=== PATIENT | male | born 1950 | race Caucasian/White ===

== ENCOUNTER 2018-04-02 10:24 | Inpatient (IN) | payer MEDICARE, OTHER ==
[2018-04-02] MEDS ORDERED: guaiFENesin 600 MG Tab.ER PO ONE (10:59)
[2018-04-02] MEDS ORDERED: Albuterol 0.083% 2.5 MG/3 ML Neb Soln NEB ONE ×2 (10:59→13:12)
[2018-04-02] MEDS ORDERED: Sodium Chloride 0.9% 1,000 ML IV SCH ×3 (11:00→12:15)
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
--- NOTE | 2018-04-02 12:05 | CR ---
Chest: Frontal view of the chest was obtained. Comparison: No prior chest x-ray. Thick discoid area of atelectasis is seen within the right base. Lungs otherwise are clear. Heart size and mediastinum are normal. Bony structures are grossly intact. Limited inspiratory study is noted. Impression: 1. Atelectasis within right lung base. Poor inspiratory study. 2. Nothing acute is otherwise seen on frontal chest x-ray. Diagnostic code #2
[2018-04-02] MEDS ORDERED: Sodium Chloride 0.9% 10 ML Syringe FLUSH ONE (12:12)
[2018-04-02] MEDS ORDERED: Iopamidol 755 Mg/ML 100 ML Bottle IVPUSH ONE (12:12)
[2018-04-02] MEDS ORDERED: Sodium Chloride 0.9% 100 ML IV SCH (12:15)
--- NOTE | 2018-04-02 12:54 | CT ---
CT chest Technique: Multiple axial sections through the chest were obtained. Intravenous contrast was utilized. Findings: Pulmonary arteries are not optimally opacified. No filling defects are seen within the main or segmental branches to indicate pulmonary embolism. Smaller subsegmental pulmonary emboli could be missed. Mediastinum and hilar regions show no adenopathy or mass. No pericardial thickening is seen. Small portion of the visualized upper abdominal structure shows no discrete abnormality. Small left sided pleural effusion is noted. Increased density is identified within both lung bases showing air bronchograms. Impression: 1. Less than optimal opacification of the pulmonary arteries. No findings of pulmonary embolism within the main or segmental branches are seen. Smaller subsegmental pulmonary emboli could be missed. 2. Small left-sided pleural effusion. 3. Consolidation within both lung bases with air bronchograms suspicious for bilateral pneumonia. Please correlate that patient has infectious symptoms. Diagnostic code #3
[2018-04-02] MEDS ORDERED: cefTRIAXone 2 GM in Sodium Chloride 0.9% 100 ML IV ONE ×2 (13:01→13:22)
[2018-04-02] MEDS ORDERED: Azithromycin 500 MG in Sodium Chloride 0.9% 250 ML IV ONE (13:01)
[2018-04-02] MEDS ORDERED: Azithromycin 500 MG Vial ONE (13:20)
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
[2018-04-02] MEDS ORDERED: Albuterol 0.083% 2.5 MG/3 ML Neb Soln NEB PRN (17:12)
[2018-04-02] MEDS ORDERED: Acetaminophen 325 MG Tab PO PRN (18:18)
[2018-04-02] MEDS: Enoxaparin 40 MG/0.4 ML Syringe SUBCUT SCH (20:11)
[2018-04-02] MEDS: guaiFENesin/Dextromethorphan 100-10 MG/5 ML Soln 5 ML Cup PO PRN (20:13)
[2018-04-02] MEDS: Sodium Chloride 0.9% 1,000 ML IV SCH (20:32)
[2018-04-02] MEDS: Albuterol/Ipratropium 3.0-0.5 MG/3 ML Neb Soln NEB SCH (20:50)
[2018-04-03] MEDS: Sodium Chloride 0.9% 1,000 ML IV SCH ×3 (03:49→19:41)
[2018-04-03] MEDS: Albuterol/Ipratropium 3.0-0.5 MG/3 ML Neb Soln NEB SCH ×4 (05:25→20:57)
[2018-04-03] MEDS ORDERED: Magnesium Hydroxide 400 MG/5 ML Susp 30 ML Cup PO ONE (06:11)
[2018-04-03] MEDS: guaiFENesin/Dextromethorphan 100-10 MG/5 ML Soln 5 ML Cup PO PRN ×2 (09:40→20:23)
[2018-04-03] MEDS ORDERED: cefTRIAXone 2 GM in Sodium Chloride 0.9% 100 ML IV SCH (13:00)
[2018-04-03] MEDS ORDERED: Azithromycin 500 MG in Sodium Chloride 0.9% 250 ML IV SCH (14:00)
[2018-04-03] MEDS: Enoxaparin 40 MG/0.4 ML Syringe SUBCUT SCH (18:30)
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
[2018-04-03] MEDS: Benzonatate 100 MG Cap PO PRN (20:23)
[2018-04-04] MEDS: Sodium Chloride 0.9% 1,000 ML IV SCH (03:44)
[2018-04-04] MEDS: Albuterol/Ipratropium 3.0-0.5 MG/3 ML Neb Soln NEB SCH ×4 (05:46→20:16)
--- NOTE | 2018-04-04 08:42 | CR ---
Chest: Two views of the chest were obtained. Comparison: Previous chest x-ray of 04/02/[address] of 04/02/18. Mild increased density within both lung bases is noted. Findings are fairly stable from previous exams. Slight blunting of the lateral left costophrenic angle is seen compatible with small pleural effusion. Upper lungs are clear. Heart size and mediastinum are normal. Bony structures appear within normal limits for patient's age. Impression: 1. Continuing increased density within both lung bases as well as small left-sided pleural effusion. 2. No significant change from prior CT study. Diagnostic code #3
[2018-04-04] MEDS: Cephalexin 500 MG Cap PO SCH ×2 (11:13→22:07)
--- NOTE | 2018-04-04 12:53 | PCM.PN ---
- General Info Date of Service: 04/04/18 Admission Dx/Problem (Free Text): Admission Diagnosis/Problem Admission Diagnosis/Problem Pneumonia Subjective Update: Follow Up - Review of Systems General: Denies: Fever, Chills HEENT: Reports: No Symptoms Pulmonary: Reports: Cough, Sputum. Denies: Shortness of Breath Cardiovascular: Denies: Chest Pain Gastrointestinal: Denies: Abdominal Pain, Nausea, Vomiting Genitourinary: Reports: No Symptoms Musculoskeletal: Reports: No Symptoms Skin: Denies: Cyanosis, Pallor, Diaphoresis, Bruising, Rash Neurological: Denies: Confusion, Difficulty Walking, Weakness, Gait Disturbance Psychiatric: Denies: Depression, Anxiety, Agitation, Hallucinations Systems Review Comment:: No overnight or acute issues. He slept well and feels pretty good this AM. He is afebrile w/o leukocytosis. His CRP is down to 10.2. He has been ambulating a lot. - Patient Data Vitals - Most Recent: Last Vital Signs Temp 36.8 C 04/04/18 03:45 Pulse 69 04/04/18 12:21 Resp 20 04/04/18 12:21 BP 107/77 04/04/18 12:21 Pulse Ox 94 L 04/04/18 12:21 Weight - Most Recent: 106.226 kg I&O - Last 24 Hours: Intake & Output 04/03/18 04/04/18 04/04/18 22:59 06:59 14:59 Intake Total 3434 1622 120 Output Total 1000 Balance 2434 1622 120 Lab Results Last 24 Hours: Laboratory Results - last 24 hr 04/02/18 04/04/18 04/04/18 Range/Units 20:19 05:32 05:32 WBC 6.40 (4.23-9.07) K/mm3 RBC 4.00 L (4.63-6.08) M/mm3 Hgb 11.8 L (13.7-17.5) gm/L Hct 35.9 L (40.1-51.0) % MCV 89.8 (79.0-92.2) fl MCH 29.5 (25.7-32.2) pg MCHC 32.9 (32.2-35.5) g/dl RDW Std Deviation 41.9 (35.1-43.9) fL Plt Count 172 (163-337) K/mm3 MPV 9.7 (9.4-12.3) fl Neut % (Auto) 59.6 (34.0-67.9) % Lymph % (Auto) 19.7 L (21.8-53.1) % Charles % (Auto) 15.6 H (5.3-12.2) % Eos % (Auto) 4.4 (0.8-7.0) Baso % (Auto) 0.5 (0.1-1.2) % Neut # (Auto) 3.82 (1.78-5.38) K/mm3 Lymph # (Auto) 1.26 L (1.32-3.57) K/mm3 Charles # (Auto) 1.00 H (0.30-0.82) K/mm3 Eos # (Auto) 0.28 (0.04-0.54) K/mm3 Baso # (Auto) 0.03 (0.01-0.08) K/mm3 Manual Slide Review Normal smear Sodium 141 (136-145) mEq/L Potassium 4.0 (3.5-5.1) mEq/L Chloride 106 (98-107) mEq/L Carbon Dioxide 27 (21-32) mEq/L Anion Gap 12.0 (5-15) BUN 10 (7-18) mg/dL Creatinine 0.9 (0.7-1.3) mg/dL Est Cr Clr Drug Dosing 88.62 mL/min Estimated GFR (MDRD) > 60 (>60) mL/min BUN/Creatinine Ratio 11.1 L (14-18) Glucose 104 (80-115) mg/dL Lactic Acid (0.4-2.0) mmol/L Calcium 8.5 (8.5-10.1) mg/dL Magnesium 1.9 (1.8-2.4) mg/dl C-Reactive Protein 10.2 H* (<1.0) mg/dL Triglycerides (<150) mg/dL Cholesterol (<200) mg/dL LDL Cholesterol Direct (<100) mg/dL HDL Cholesterol (40-59) mg/dL Adenovirus (PCR) Not detected (Not Detected) B. pertussis DNA (PCR) Not detected (Not Detected) B.parapertussis DNA PCR Not detected (Not Detected) C. pneumoniae DNA (PCR) Not detected (Not Detected) Coronavirus (PCR) Not detected (Not Detected) Human Metapneumovir PCR Not detected (Not Detected) Influenza A (RT-PCR) Not detected (Not Detected) Influenza B (RT-PCR) Not detected (Not Detected) M. pneumoniae (PCR) Not detected (Not Detected) Parainfluen 1,2,3,4 PCR Not detected (Not Detected) RSV (PCR) Not detected (Not Detected) Entero/Rhino (PCR) Not detected (Not Detected) 04/04/18 04/04/18 Range/Units 05:32 05:32 WBC (4.23-9.07) K/mm3 RBC (4.63-6.08) M/mm3 Hgb (13.7-17.5) gm/L Hct (40.1-51.0) % MCV (79.0-92.2) fl MCH (25.7-32.2) pg MCHC (32.2-35.5) g/dl RDW Std Deviation (35.1-43.9) fL Plt Count (163-337) K/mm3 MPV (9.4-12.3) fl Neut % (Auto) (34.0-67.9) % Lymph % (Auto) (21.8-53.1) % Charles % (Auto) (5.3-12.2) % Eos % (Auto) (0.8-7.0) Baso % (Auto) (0.1-1.2) % Neut # (Auto) (1.78-5.38) K/mm3 Lymph # (Auto) (1.32-3.57) K/mm3 Charles # (Auto) (0.30-0.82) K/mm3 Eos # (Auto) (0.04-0.54) K/mm3 Baso # (Auto) (0.01-0.08) K/mm3 Manual Slide Review Sodium (136-145) mEq/L Potassium (3.5-5.1) mEq/L Chloride (98-107) mEq/L Carbon Dioxide (21-32) mEq/L Anion Gap (5-15) BUN (7-18) mg/dL Creatinine (0.7-1.3) mg/dL Est Cr Clr Drug Dosing mL/min Estimated GFR (MDRD) (>60) mL/min BUN/Creatinine Ratio (14-18) Glucose (80-115) mg/dL Lactic Acid 0.4 (0.4-2.0) mmol/L Calcium (8.5-10.1) mg/dL Magnesium (1.8-2.4) mg/dl C-Reactive Protein (<1.0) mg/dL Triglycerides 51 (<150) mg/dL Cholesterol 187 (<200) mg/dL LDL Cholesterol Direct 119 H* (<100) mg/dL HDL Cholesterol 58.0 (40-59) mg/dL Adenovirus (PCR) (Not Detected) B. pertussis DNA (PCR) (Not Detected) B.parapertussis DNA PCR (Not Detected) C. pneumoniae DNA (PCR) (Not Detected) Coronavirus (PCR) (Not Detected) Human Metapneumovir PCR (Not Detected) Influenza A (RT-PCR) (Not Detected) Influenza B (RT-PCR) (Not Detected) M. pneumoniae (PCR) (Not Detected) Parainfluen 1,2,3,4 PCR (Not Detected) RSV (PCR) (Not Detected) Entero/Rhino (PCR) (Not Detected) Matty Results Last 24 Hours: Microbiology 04/02/18 10:55 Aerobic Blood Culture - Preliminary Blood - Venous NO GROWTH AFTER 2 DAYS Anaerobic Blood Culture - Preliminary NO GROWTH AFTER 2 DAYS 04/02/18 10:50 Aerobic Blood Culture - Preliminary Blood - Venous - Lab Draw NO GROWTH AFTER 2 DAYS Anaerobic Blood Culture - Preliminary NO GROWTH AFTER 2 DAYS 04/03/18 15:00 Gram Stain - Final Sputum - Expectorated Sputum Culture - Preliminary Med Orders - Current: Current Medications Acetaminophen (Tylenol) 650 mg PO Q6H PRN PRN Reason: Pain/Fever Albuterol (Proventil Neb Soln) 2.5 mg NEB Q4H PRN PRN Reason: Shortness of Breath Albuterol/Ipratropium (Duoneb 3.0-0.5 Mg/3 Ml) 3 ml NEB QIDRT [facility] Last Admin: 04/04/18 09:22 Dose: 3 ml Azithromycin (Zithromax) 500 mg PO DAILY@1400 TRACE Benzonatate (Tessalon Perles) 100 mg PO TID PRN PRN Reason: Cough Last Admin: 04/03/18 20:23 Dose: 100 mg Cephalexin (Keflex) 500 mg PO BID [facility] Last Admin: 04/04/18 11:13 Dose: 500 mg Enoxaparin Sodium (Lovenox) 40 mg SUBCUT Q24H [facility] Last Admin: 04/03/18 18:30 Dose: 40 mg Guaifenesin/Phenylephrine HCl (Robitussin Dm) 10 ml PO Q6H PRN PRN Reason: Cough Last Admin: 04/03/18 20:23 Dose: 10 ml Discontinued Medications Albuterol (Proventil Neb Soln) 2.5 mg NEB ONETIME ONE Stop: 04/02/18 11:00 Last Admin: 04/02/18 11:10 Dose: 2.5 mg Albuterol (Proventil Neb Soln) 2.5 mg NEB ONETIME ONE Stop: 04/02/18 13:13 Last Admin: 04/02/18 13:39 Dose: 2.5 mg Azithromycin (Zithromax) Confirm Administered Dose 500 mg .ROUTE .STK-MED ONE Stop: 04/02/18 13:21 Last Admin: 04/02/18 14:11 Dose: Not Given Guaifenesin (Mucinex) 1,200 mg PO ONETIME ONE Stop: 04/02/18 11:00 Last Admin: 04/02/18 11:40 Dose: 1,200 mg Sodium Chloride (Normal Saline) 1,000 mls @ 999 mls/hr IV ASDIRECTED [facility] Last Admin: 04/02/18 11:25 Dose: 999 mls/hr Sodium Chloride (Normal Saline) 1,000 mls @ 500 mls/hr IV ASDIRECTED [facility] Sodium Chloride (Normal Saline) 1,000 mls @ 125 mls/hr IV ASDIRECTED [facility] Last Admin: 04/02/18 12:37 Dose: 125 mls/hr Sodium Chloride (Normal Saline) 100 mls @ 60 mls/hr IV ASDIRECTED [facility] Last Admin: 04/02/18 12:23 Dose: 60 mls/hr Azithromycin 500 mg/ Sodium (Chloride) 250 mls @ 250 mls/hr IV ONETIME ONE Stop: 04/02/18 14:00 Last Admin: 04/02/18 14:13 Dose: 250 mls/hr Ceftriaxone Sodium 2 gm/ (Sodium Chloride) 100 mls @ 200 mls/hr IV ONETIME ONE Stop: 04/02/18 13:30 Last Admin: 04/02/18 14:12 Dose: Not Given Ceftriaxone Sodium 2 gm/ (Sodium Chloride) 100 mls @ 200 mls/hr IV ONETIME ONE Stop: 04/02/18 13:30 Last Admin: 04/02/18 13:34 Dose: 200 mls/hr Azithromycin 500 mg/ Sodium (Chloride) 250 mls @ 250 mls/hr IV Q24H [facility] Last Admin: 04/03/18 13:30 Dose: 250 mls/hr Ceftriaxone Sodium 2 gm/ (Sodium Chloride) 100 mls @ 200 mls/hr IV Q24H [facility] Last Admin: 04/03/18 12:56 Dose: 200 mls/hr Sodium Chloride (Normal Saline) 1,000 mls @ 125 mls/hr IV ASDIRECTED [facility] Last Admin: 04/04/18 03:44 Dose: 125 mls/hr Iopamidol (Isovue-370 (76%)) 100 ml IVPUSH ONETIME ONE Stop: 04/02/18 12:13 Last Admin: 04/02/18 12:23 Dose: 100 ml Magnesium Hydroxide (Milk Of Magnesia) 30 ml PO ONETIME ONE Stop: 04/03/18 06:12 Last Admin: 04/03/18 06:22 Dose: 30 ml Sodium Chloride (Saline Flush) 10 ml FLUSH ONETIME ONE Stop: 04/02/18 12:13 Last Admin: 04/02/18 12:23 Dose: 10 ml - Exam General: Alert, Cooperative, No Acute Distress HEENT: Pupils Equal, Pupils Reactive, EOMI, Mucous Membr. Moist/[place] Neck: Supple, Trachea Midline Lungs: Normal Respiratory Effort, Crackles (mild at the bases) Cardiovascular: Regular Rate, Regular Rhythm GI/Abdominal Exam: Normal Bowel Sounds, Soft, No Organomegaly, No Distention, No Abnormal Bruit, No Mass (Male) Exam: Deferred Back Exam: Normal Inspection, Decreased Range of Motion Extremities: Normal Inspection, Normal Range of Motion, Non-Tender, No Pedal Edema, Normal Capillary Refill Peripheral Pulses: 2+: Dorsalis Pedis (L), Dorsalis Pedis (R) Skin: Warm, Dry, Intact Neurological: No New Focal Deficit Psy/Mental Status: Alert, Normal Affect, Normal Mood - Problem List Review Problem List Initiated/Reviewed/Updated: Yes - My Orders Last 24 Hours: My Active Orders 04/04/18 10:45 cephALEXin [Keflex] 500 mg PO BID 04/04/18 14:00 Azithromycin [Zithromax] 500 mg PO DAILY@1400 - Plan Plan:: Impression: Acute: Bilateral PNA with hypoxia, Contiues to Improve * F/C, cough, SOB x 3 days * Risk Factors: h/o recurrent PNA x 10 yrs * O2 sat on RA, 73%--> 91% on 4L O2 * WBC 9.78--> 7.56--> 6.40; CRP 21.2-->16.2 -->10.2 * CXR 04/02/18: * 1. Atelectasis within right lung base. Poor inspiratory study. * 2. Nothing acute is otherwise seen on frontal chest x-ray. 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 Trujillo Possible d/c in AM
[2018-04-04] MEDS: Azithromycin 250 MG Tab PO SCH (13:14)
[2018-04-04] MEDS: Enoxaparin 40 MG/0.4 ML Syringe SUBCUT SCH ×2 (17:16→19:01)
[2018-04-04] MEDS: guaiFENesin/Dextromethorphan 100-10 MG/5 ML Soln 5 ML Cup PO PRN (19:01)
[2018-04-05] MEDS: Albuterol/Ipratropium 3.0-0.5 MG/3 ML Neb Soln NEB SCH ×4 (05:03→20:05)
[2018-04-05] MEDS: Cephalexin 500 MG Cap PO SCH ×2 (08:37→20:14)
[2018-04-05] MEDS: guaiFENesin/Dextromethorphan 100-10 MG/5 ML Soln 5 ML Cup PO PRN ×2 (08:37→20:13)
--- NOTE | 2018-04-05 09:26 | PCM.PN ---
- General Info Date of Service: 04/05/18 Admission Dx/Problem (Free Text): Admission Diagnosis/Problem Admission Diagnosis/Problem Pneumonia Subjective Update: Follow Up Functional Status: Reports: Pain Controlled, Tolerating Diet, Ambulating, Urinating, New Symptoms (bloated ) - Review of Systems General: Denies: Fever, Chills HEENT: Reports: No Symptoms Pulmonary: Denies: Shortness of Breath Cardiovascular: Denies: Chest Pain, Palpitations, Lightheadedness Gastrointestinal: Denies: Abdominal Pain, Nausea, Vomiting, Other (no bowel movement) Genitourinary: Reports: No Symptoms Musculoskeletal: Reports: No Symptoms Skin: Denies: Cyanosis, Pallor, Diaphoresis, Bruising, Pruritis Neurological: Denies: No Symptoms, Confusion, Difficulty Walking, Weakness, Gait Disturbance Psychiatric: Denies: No Symptoms, Depression, Anxiety, Hallucinations Systems Review Comment:: No overnight or acute issues. He rested well. He still coughs with some blood tinged sputum but has now becoming less frequent. He feels he is slowly getting better. He remains afebrile w/o leukocytosis. He is however still on supplemental O2 at 3L. - Patient Data Vitals - Most Recent: Last Vital Signs Temp 36.7 C 04/05/18 03:48 Pulse 71 04/05/18 07:51 Resp 20 04/05/18 07:51 BP 129/81 04/05/18 07:51 Pulse Ox 92 L 04/05/18 07:51 Weight - Most Recent: 105.551 kg I&O - Last 24 Hours: Intake & Output 04/04/18 04/05/18 04/05/18 22:59 06:59 14:59 Intake Total 2950 800 Balance 2950 800 Lab Results Last 24 Hours: Laboratory Results - last 24 hr 04/05/18 04/05/18 04/05/18 Range/Units 05:42 05:42 05:42 WBC 5.90 (4.23-9.07) K/mm3 RBC 4.26 L (4.63-6.08) M/mm3 Hgb 12.5 L (13.7-17.5) gm/L Hct 37.9 L (40.1-51.0) % MCV 89.0 (79.0-92.2) fl MCH 29.3 (25.7-32.2) pg MCHC 33.0 (32.2-35.5) g/dl RDW Std Deviation 40.6 (35.1-43.9) fL Plt Count 193 (163-337) K/mm3 MPV 9.3 L (9.4-12.3) fl Neut % (Auto) 51.7 (34.0-67.9) % Lymph % (Auto) 27.1 (21.8-53.1) % [place] % (Auto) 15.9 H (5.3-12.2) % Eos % (Auto) 4.7 (0.8-7.0) Baso % (Auto) 0.3 (0.1-1.2) % Neut # (Auto) 3.04 (1.78-5.38) K/mm3 Lymph # (Auto) 1.60 (1.32-3.57) K/mm3 [place] # (Auto) 0.94 H (0.30-0.82) K/mm3 Eos # (Auto) 0.28 (0.04-0.54) K/mm3 Baso # (Auto) 0.02 (0.01-0.08) K/mm3 Manual Slide Review Normal smear Sodium 140 (136-145) mEq/L Potassium 3.9 (3.5-5.1) mEq/L Chloride 103 (98-107) mEq/L Carbon Dioxide 26 (21-32) mEq/L Anion Gap 14.9 (5-15) BUN 14 (7-18) mg/dL Creatinine 0.9 (0.7-1.3) mg/dL Est Cr Clr Drug Dosing 88.62 mL/min Estimated GFR (MDRD) > 60 (>60) mL/min BUN/Creatinine Ratio 15.6 (14-18) Glucose 104 (80-115) mg/dL Lactic Acid 0.6 (0.4-2.0) mmol/L Calcium 9.0 (8.5-10.1) mg/dL Magnesium 1.9 (1.8-2.4) mg/dl C-Reactive Protein 7.6 H* (<1.0) mg/dL Matty Results Last 24 Hours: Microbiology 04/02/18 10:55 Aerobic Blood Culture - Preliminary Blood - Venous NO GROWTH AFTER 2 DAYS Anaerobic Blood Culture - Preliminary NO GROWTH AFTER 2 DAYS 04/02/18 10:50 Aerobic Blood Culture - Preliminary Blood - Venous - Lab Draw NO GROWTH AFTER 2 DAYS Anaerobic Blood Culture - Preliminary NO GROWTH AFTER 2 DAYS 04/03/18 15:00 Gram Stain - Final Sputum - Expectorated Sputum Culture - Preliminary Med Orders - Current: Current Medications Acetaminophen (Tylenol) 650 mg PO Q6H PRN PRN Reason: Pain/Fever Last Admin: 04/05/18 08:35 Dose: 650 mg Albuterol (Proventil Neb Soln) 2.5 mg NEB Q4H PRN PRN Reason: Shortness of Breath Albuterol/Ipratropium (Duoneb 3.0-0.5 Mg/3 Ml) 3 ml NEB QIDRT [facility] Last Admin: 04/05/18 05:03 Dose: 3 ml Azithromycin (Zithromax) 500 mg PO DAILY@1400 [facility] Last Admin: 04/04/18 13:14 Dose: 500 mg Benzonatate (Tessalon Perles) 100 mg PO TID PRN PRN Reason: Cough Last Admin: 04/03/18 20:23 Dose: 100 mg Cephalexin (Keflex) 500 mg PO BID [facility] Last Admin: 04/05/18 08:37 Dose: 500 mg Enoxaparin Sodium (Lovenox) 40 mg SUBCUT Q24H [facility] Last Admin: 04/04/18 19:01 Dose: Not Given Guaifenesin/Phenylephrine HCl (Robitussin Dm) 10 ml PO Q6H PRN PRN Reason: Cough Last Admin: 04/05/18 08:37 Dose: 10 ml Discontinued Medications Albuterol (Proventil Neb Soln) 2.5 mg NEB ONETIME ONE Stop: 04/02/18 11:00 Last Admin: 04/02/18 11:10 Dose: 2.5 mg Albuterol (Proventil Neb Soln) 2.5 mg NEB ONETIME ONE Stop: 04/02/18 13:13 Last Admin: 04/02/18 13:39 Dose: 2.5 mg Azithromycin (Zithromax) Confirm Administered Dose 500 mg .ROUTE .STK-MED ONE Stop: 04/02/18 13:21 Last Admin: 04/02/18 14:11 Dose: Not Given Guaifenesin (Mucinex) 1,200 mg PO ONETIME ONE Stop: 04/02/18 11:00 Last Admin: 04/02/18 11:40 Dose: 1,200 mg Sodium Chloride (Normal Saline) 1,000 mls @ 999 mls/hr IV ASDIRECTED [facility] Last Admin: 04/02/18 11:25 Dose: 999 mls/hr Sodium Chloride (Normal Saline) 1,000 mls @ 500 mls/hr IV ASDIRECTED [facility] Sodium Chloride (Normal Saline) 1,000 mls @ 125 mls/hr IV ASDIRECTED [facility] Last Admin: 04/02/18 12:37 Dose: 125 mls/hr Sodium Chloride (Normal Saline) 100 mls @ 60 mls/hr IV ASDIRECTED [facility] Last Admin: 04/02/18 12:23 Dose: 60 mls/hr Azithromycin 500 mg/ Sodium (Chloride) 250 mls @ 250 mls/hr IV ONETIME ONE Stop: 04/02/18 14:00 Last Admin: 04/02/18 14:13 Dose: 250 mls/hr Ceftriaxone Sodium 2 gm/ (Sodium Chloride) 100 mls @ 200 mls/hr IV ONETIME ONE Stop: 04/02/18 13:30 Last Admin: 04/02/18 14:12 Dose: Not Given Ceftriaxone Sodium 2 gm/ (Sodium Chloride) 100 mls @ 200 mls/hr IV ONETIME ONE Stop: 04/02/18 13:30 Last Admin: 04/02/18 13:34 Dose: 200 mls/hr Azithromycin 500 mg/ Sodium (Chloride) 250 mls @ 250 mls/hr IV Q24H [facility] Last Admin: 04/03/18 13:30 Dose: 250 mls/hr Ceftriaxone Sodium 2 gm/ (Sodium Chloride) 100 mls @ 200 mls/hr IV Q24H [facility] Last Admin: 04/03/18 12:56 Dose: 200 mls/hr Sodium Chloride (Normal Saline) 1,000 mls @ 125 mls/hr IV ASDIRECTED [facility] Last Admin: 04/04/18 03:44 Dose: 125 mls/hr Iopamidol (Isovue-370 (76%)) 100 ml IVPUSH ONETIME ONE Stop: 04/02/18 12:13 Last Admin: 04/02/18 12:23 Dose: 100 ml Magnesium Hydroxide (Milk Of Magnesia) 30 ml PO ONETIME ONE Stop: 04/03/18 06:12 Last Admin: 04/03/18 06:22 Dose: 30 ml Sodium Chloride (Saline Flush) 10 ml FLUSH ONETIME ONE Stop: 04/02/18 12:13 Last Admin: 04/02/18 12:23 Dose: 10 ml - Exam Quality Assessment: Supplemental Oxygen General: Alert, Oriented, Cooperative, No Acute Distress HEENT: Pupils Equal, Pupils Reactive, EOMI, Mucous Membr. Moist/[place] Neck: Supple, Trachea Midline Lungs: Decreased Breath Sounds, Rhonchi, Stridor Cardiovascular: Regular Rhythm, Bradycardia GI/Abdominal Exam: Normal Bowel Sounds, Soft, No Organomegaly, No Distention, No Abnormal Bruit, No Mass (Male) Exam: Deferred Back Exam: Normal Inspection, Decreased Range of Motion Extremities: Normal Inspection, Normal Range of Motion, Non-Tender, No Pedal Edema, Normal Capillary Refill Peripheral Pulses: 2+: Dorsalis Pedis (L), Dorsalis Pedis (R) Skin: Warm, Dry, Intact Neurological: No New Focal Deficit, Normal Gait Psy/Mental Status: Alert, Normal Affect, Normal Mood - Problem List Review Problem List Initiated/Reviewed/Updated: Yes - My Orders Last 24 Hours: My Active Orders 04/04/18 10:45 cephALEXin [Keflex] 500 mg PO BID 04/04/18 14:00 Azithromycin [Zithromax] 500 mg PO DAILY@1400 04/05/18 09:00 Vital Signs [RC] Q6H - Plan Plan:: Impression: Acute: Bilateral PNA with hypoxia, Continues to Improve * F/C, cough, SOB x 3 days * Risk Factors: h/o recurrent PNA x 10 yrs * O2 sat on RA, 73%--> 91% on 4L O2 * WBC 9.78--> 7.56-->6.40-->5.90; CRP 21.2-->16.2 -->10.2--> 7.6 * CXR 04/02/18: * 1. Atelectasis within right lung base. Poor inspiratory study. * 2. Nothing acute is otherwise seen on frontal chest x-ray. 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 rTujillo LOS anticipate > 96 hrs due to slow response to treatment
[2018-04-05] MEDS: Azithromycin 250 MG Tab PO SCH (13:38)
[2018-04-05] MEDS ORDERED: Simethicone 80 MG Tab.Chew PO PRN (14:39)
[2018-04-05] MEDS: Enoxaparin 40 MG/0.4 ML Syringe SUBCUT SCH (18:12)
[2018-04-05] MEDS: Saccharomyces Boulardii (Probiotic) 250 MG Cap PO SCH (20:14)
[2018-04-05] MEDS: Benzonatate 100 MG Cap PO PRN (20:14)
[2018-04-06] MEDS: Albuterol/Ipratropium 3.0-0.5 MG/3 ML Neb Soln NEB SCH ×2 (05:09→09:28)
[2018-04-06] MEDS: Cephalexin 500 MG Cap PO SCH (08:48)
[2018-04-06] MEDS: Saccharomyces Boulardii (Probiotic) 250 MG Cap PO SCH (08:48)
--- NOTE | 2018-04-06 10:07 | CR ---
Chest: Portable view of the chest is obtained. Comparison: Prior chest x-ray of 04/04/18. Slight increased density is noted within both lung bases. I don't appreciate any significant interval change from previous study. Upper lungs remain clear. Heart size and mediastinum are normal. Scoliosis is noted within the spine with mild scattered degenerative change. Impression: 1. Slight increased density within both lung bases. No definite change from previous study. Diagnostic code #3
--- NOTE | 2018-04-06 11:29 | PCM.DCSUM1 ---
Discharge Summary - Hospital Course Free Text/Narrative:: Patient was primarily treated for community acquired pneumonia. All his basic infectious work up revealed no organismal growth. His chest x-ray showed bilateral pneumonia. His blood cultures were clean for infection. However he was treated with combination of azithromycin and rocephin. The patient slowly improved on this regimen. His hospital course was uncomplicated and he developed no complications while was at the hospital. Once medically stable, he was discharged home to complete additional course of oral antibiotic. He was given appropriate vaccinations due to asplenia upon discharge. He was advised to follow discharge instructions and to practice proper hygiene and isolation precautions. He was further advised to follow up his PCP after discharge and to come back and seek immediate care should his symptoms persist or gets worse. His PCP was called and updated regarding discharge care plans. Brief History: This is a 68 yo white male with no significant past medical hx/o who comes in with complaints of 3 day hx/o left-sided chest pain, fever, chills , cough, shortness of breath and was diagnosed with bilateral pneumonia on chest CTA. Diagnosis: Stroke: No Modified [place] Scale: No Symptoms at All Modified [place] Scale Score: 0 - Discharge Data Discharge Date: 04/06/18 Discharge Disposition: Home, Self-Care 01 Condition: Good - Discharge Diagnosis/Problem(s) (1) Dehydration SNOMED Code(s): 04245089 ICD Code: E86.0 - DEHYDRATION Status: Resolved (2) Hypoxia SNOMED Code(s): 783933276 ICD Code: R09.02 - HYPOXEMIA Status: Resolved Problem Details: - 94% of RA - 89% and above with ambulation w/o supplemental O2 (3) Bilateral pneumonia SNOMED Code(s): 223329001 ICD Code: J18.9 - PNEUMONIA, UNSPECIFIED ORGANISM Status: Acute Priority : High Qualifiers: Pneumonia type: due to unspecified organism Lung location: lower lobe of lung Qualified Code(s): J18.1 - Lobar pneumonia, unspecified organism (4) Asplenia after surgical procedure SNOMED Code(s): 880832641 ICD Code: Z90.81 - ACQUIRED ABSENCE OF SPLEEN Status: Inactive - Patient Summary/Data Operative Procedure(s) Performed: None Complications: None Consults: Consultations 04/03/18 20:29 Respiratory Care Assess and Treatment [CONS] Routine Labs Pending at D/C: None Recommended Follow-up Testing/Procedures: chest x-ray in 1 week Planned Operative Procedure(s) after DC: None - Patient Instructions Diet: Usual Diet as Tolerated Activity: As Tolerated Driving: Do Not Drive Showering/Bathing: May Shower Notify Provider of: Fever, Increased Pain, Nausea and/or Vomiting Other/Special Instructions: - Please take all new medications as directed. - Resume all home medications and continue routine home activities as tolerated. - Make sure use facial mask as needed to protect your self. - Use FV/IS as directed. - Recommend repeat chest x-ray in 1 week. - Call or follow up with your PCP after discharge. - Follow with your PCP in 1 week. - Come back or seek immediate care should your symptoms persist or get worse. - Discharge Plan *PRESCRIPTION DRUG MONITORING PROGRAM REVIEWED*: Not Applicable *COPY OF PRESCRIPTION DRUG MONITORING REPORT IN PATIENT SRIDEVI: Not Applicable Prescriptions/Med Rec: Levofloxacin [Levaquin] 750 mg PO DAILY #6 tablet Saccharomyces Boulardii [Florastor] 250 mg PO DAILY #6 capsule Home Medications: Home Meds Cartilage/Collagen/Bor/Hyalur [Joint Health Tablet] 1 tab PO DAILY 04/02/18 [ History] Multivitamin [One-A-Day Essential] 1 tab PO DAILY 04/02/18 [History] Grape Seed Extract [Grape Seed] 50 mg PO DAILY #0 04/06/18 [Rx] Levofloxacin [Levaquin] 750 mg PO DAILY #6 tablet 04/06/18 [Rx] Saccharomyces Boulardii [Florastor] 250 mg PO DAILY #6 capsule 04/06/18 [Rx] Patient Handouts: Hypoxemia, Dehydration, Adult, [id number], Community- Acquired Pneumonia, Adult, [id number] Referrals: Octavio Trujillo MD [Primary Care Provider] - - Discharge Summary/Plan Comment DC Time >30 min.: No Discharge Summary/Plan Comment: Discharge to Home - General Info Date of Service: 04/06/18 Admission Dx/Problem (Free Text: Admission Diagnosis/Problem Admission Diagnosis/Problem Pneumonia Subjective Update: Follow Up Functional Status: Reports: Pain Controlled, Tolerating Diet, Ambulating, Urinating. Denies: New Symptoms - Review of Systems General: Denies: Fever, Weakness, Fatigue, Malaise, Chills HEENT: Reports: No Symptoms Pulmonary: Reports: Cough. Denies: Shortness of Breath, Wheezing Cardiovascular: Denies: Chest Pain, Dyspnea on Exertion, Edema, Lightheadedness Gastrointestinal: Denies: Abdominal Pain, Decreased Appetite, Nausea, Vomiting Genitourinary: Reports: No Symptoms Musculoskeletal: Reports: No Symptoms Skin: Denies: Cyanosis, Mottled, Pallor, Diaphoresis, Bruising, Other Neurological: Denies: Confusion, Difficulty Walking, Weakness, Gait Disturbance Psychiatric: Denies: Depression, Anxiety, Agitation, Hallucinations Systems Review Comment: No overnight or acute issues. He rested well and has no complaints this AM. He is sating at 94% on RA. - Patient Data Vitals - Most Recent: Last Vital Signs Temp 36.3 C 04/06/18 08:11 Pulse 85 04/06/18 08:11 Resp 15 04/06/18 08:11 BP 134/80 04/06/18 08:11 Pulse Ox 91 L 04/06/18 09:29 Weight - Most Recent: 103.447 kg I&O - Last 24 hours: Intake & Output 04/05/18 04/06/18 04/06/18 22:59 06:59 14:59 Intake Total 3320 800 300 Balance 3320 800 300 Lab Results - Last 24 hrs: Laboratory Results - last 24 hr 04/06/18 04/06/18 04/06/18 Range/Units 05:55 05:55 05:55 WBC 5.82 (4.23-9.07) K/mm3 RBC 4.35 L (4.63-6.08) M/mm3 Hgb 12.8 L (13.7-17.5) gm/L Hct 38.4 L (40.1-51.0) % MCV 88.3 (79.0-92.2) fl MCH 29.4 (25.7-32.2) pg MCHC 33.3 (32.2-35.5) g/dl RDW Std Deviation 40.2 (35.1-43.9) fL Plt Count 225 (163-337) K/mm3 MPV 9.4 (9.4-12.3) fl Neut % (Auto) 46.3 (34.0-67.9) % Lymph % (Auto) 33.8 (21.8-53.1) % [place] % (Auto) 13.7 H (5.3-12.2) % Eos % (Auto) 5.5 (0.8-7.0) Baso % (Auto) 0.5 (0.1-1.2) % Neut # (Auto) 2.69 (1.78-5.38) K/mm3 Lymph # (Auto) 1.97 (1.32-3.57) K/mm3 [place] # (Auto) 0.80 (0.30-0.82) K/mm3 Eos # (Auto) 0.32 (0.04-0.54) K/mm3 Baso # (Auto) 0.03 (0.01-0.08) K/mm3 Sodium 140 (136-145) mEq/L Potassium 3.7 (3.5-5.1) mEq/L Chloride 103 (98-107) mEq/L Carbon Dioxide 25 (21-32) mEq/L Anion Gap 15.7 H (5-15) BUN 15 (7-18) mg/dL Creatinine 1.0 (0.7-1.3) mg/dL Est Cr Clr Drug Dosing 79.76 mL/min Estimated GFR (MDRD) > 60 (>60) mL/min BUN/Creatinine Ratio 15.0 (14-18) Glucose 120 H (80-115) mg/dL Lactic Acid 1.5 (0.4-2.0) mmol/L Calcium 9.3 (8.5-10.1) mg/dL Magnesium 1.9 (1.8-2.4) mg/dl C-Reactive Protein 5.7 H* (<1.0) mg/dL QUINN Results - Last 24 hrs: Microbiology 04/02/18 10:55 Aerobic Blood Culture - Preliminary Blood - Venous NO GROWTH AFTER 4 DAYS Anaerobic Blood Culture - Preliminary NO GROWTH AFTER 4 DAYS 04/02/18 10:50 Aerobic Blood Culture - Preliminary Blood - Venous - Lab Draw NO GROWTH AFTER 4 DAYS Anaerobic Blood Culture - Preliminary NO GROWTH AFTER 4 DAYS 04/03/18 15:00 Gram Stain - Final Sputum - Expectorated Sputum Culture - Preliminary Med Orders - Current: Current Medications Acetaminophen (Tylenol) 650 mg PO Q6H PRN PRN Reason: Pain/Fever Last Admin: 04/05/18 08:35 Dose: 650 mg Albuterol (Proventil Neb Soln) 2.5 mg NEB Q4H PRN PRN Reason: Shortness of Breath Albuterol/Ipratropium (Duoneb 3.0-0.5 Mg/3 Ml) 3 ml NEB QIDRT [facility] Last Admin: 04/06/18 09:28 Dose: 3 ml Azithromycin (Zithromax) 500 mg PO DAILY@1400 [facility] Last Admin: 04/05/18 13:38 Dose: 500 mg Benzonatate (Tessalon Perles) 100 mg PO TID PRN PRN Reason: Cough Last Admin: 04/05/18 20:14 Dose: 100 mg Cephalexin (Keflex) 500 mg PO BID [facility] Last Admin: 04/06/18 08:48 Dose: 500 mg Enoxaparin Sodium (Lovenox) 40 mg SUBCUT Q24H [facility] Last Admin: 04/05/18 18:12 Dose: 40 mg Flunisolide (Nasalide Nasal [place]) 0 ml NASBOTH BID [facility] Last Admin: 04/06/18 08:48 Dose: Not Given Guaifenesin/Phenylephrine HCl (Robitussin Dm) 10 ml PO Q6H PRN PRN Reason: Cough Last Admin: 04/05/18 20:13 Dose: 10 ml Saccharomyces Boulardii (Florastor) 250 mg PO DAILY [facility] Last Admin: 04/06/18 08:48 Dose: 250 mg Simethicone (Simethicone) 80 mg PO Q6H PRN PRN Reason: Indigestion Discontinued Medications Albuterol (Proventil Neb Soln) 2.5 mg NEB ONETIME ONE Stop: 04/02/18 11:00 Last Admin: 04/02/18 11:10 Dose: 2.5 mg Albuterol (Proventil Neb Soln) 2.5 mg NEB ONETIME ONE Stop: 04/02/18 13:13 Last Admin: 04/02/18 13:39 Dose: 2.5 mg Azithromycin (Zithromax) Confirm Administered Dose 500 mg .ROUTE .STK-MED ONE Stop: 04/02/18 13:21 Last Admin: 04/02/18 14:11 Dose: Not Given Guaifenesin (Mucinex) 1,200 mg PO ONETIME ONE Stop: 04/02/18 11:00 Last Admin: 04/02/18 11:40 Dose: 1,200 mg Sodium Chloride (Normal Saline) 1,000 mls @ 999 mls/hr IV ASDIRECTED [facility] Last Admin: 04/02/18 11:25 Dose: 999 mls/hr Sodium Chloride (Normal Saline) 1,000 mls @ 500 mls/hr IV ASDIRECTED [facility] Sodium Chloride (Normal Saline) 1,000 mls @ 125 mls/hr IV ASDIRECTED [facility] Last Admin: 04/02/18 12:37 Dose: 125 mls/hr Sodium Chloride (Normal Saline) 100 mls @ 60 mls/hr IV ASDIRECTED [facility] Last Admin: 04/02/18 12:23 Dose: 60 mls/hr Azithromycin 500 mg/ Sodium (Chloride) 250 mls @ 250 mls/hr IV ONETIME ONE Stop: 04/02/18 14:00 Last Admin: 04/02/18 14:13 Dose: 250 mls/hr Ceftriaxone Sodium 2 gm/ (Sodium Chloride) 100 mls @ 200 mls/hr IV ONETIME ONE Stop: 04/02/18 13:30 Last Admin: 04/02/18 14:12 Dose: Not Given Ceftriaxone Sodium 2 gm/ (Sodium Chloride) 100 mls @ 200 mls/hr IV ONETIME ONE Stop: 04/02/18 13:30 Last Admin: 04/02/18 13:34 Dose: 200 mls/hr Azithromycin 500 mg/ Sodium (Chloride) 250 mls @ 250 mls/hr IV Q24H [facility] Last Admin: 04/03/18 13:30 Dose: 250 mls/hr Ceftriaxone Sodium 2 gm/ (Sodium Chloride) 100 mls @ 200 mls/hr IV Q24H [facility] Last Admin: 04/03/18 12:56 Dose: 200 mls/hr Sodium Chloride (Normal Saline) 1,000 mls @ 125 mls/hr IV ASDIRECTED [facility] Last Admin: 04/04/18 03:44 Dose: 125 mls/hr Iopamidol (Isovue-370 (76%)) 100 ml IVPUSH ONETIME ONE Stop: 04/02/18 12:13 Last Admin: 04/02/18 12:23 Dose: 100 ml Magnesium Hydroxide (Milk Of Magnesia) 30 ml PO ONETIME ONE Stop: 04/03/18 06:12 Last Admin: 04/03/18 06:22 Dose: 30 ml Sodium Chloride (Saline Flush) 10 ml FLUSH ONETIME ONE Stop: 04/02/18 12:13 Last Admin: 04/02/18 12:23 Dose: 10 ml - Exam Quality Assessment: Denies: Supplemental Oxygen General: Reports: Alert, Oriented, Cooperative, No Acute Distress HEENT: Reports: Pupils Equal, Pupils Reactive, EOMI, Mucous Membr. Moist/[place] Neck: Reports: Supple Lungs: Reports: Normal Respiratory Effort, Crackles (very fine on the bases) Cardiovascular: Reports: Regular Rate, Regular Rhythm GI/Abdominal Exam: Normal Bowel Sounds, Soft, Non-Tender, No Organomegaly, No Distention, No Abnormal Bruit (Male) Exam: Deferred Rectal (Males) Exam: Deferred Back Exam: Reports: Normal Inspection, Decreased Range of Motion Extremities: Normal Inspection, Normal Range of Motion, Non-Tender, No Pedal Edema, Normal Capillary Refill Skin: Reports: Warm, Dry, Intact Neurological: Reports: No New Focal Deficit Psy/Mental Status: Reports: Alert, Normal Affect, Normal Mood
== END 2018-04-06 12:52 | disposition home or self-care (01) | DRG 195 ==
LOC: JD.ED 10:24 → JD.MS 13:38
PROVIDERS: ADMIT Internal Medicine Cardiovascular Disease; ATTEND Internal Medicine Cardiovascular Disease
DX: J18.1 Lobar pneumonia, unspecified organism (principal); K59.00 Constipation, unspecified; E78.00 Pure hypercholesterolemia, unspecified; F32.9 Major depressive disorder, single episode, unspecified; E78.5 Hyperlipidemia, unspecified; E86.0 Dehydration; R09.02 Hypoxemia; H54.7 Unspecified visual loss; Z87.01 Personal history of pneumonia (recurrent); Z90.81 Acquired absence of spleen; R50.9 Fever, unspecified; R05 Cough; R07.9 Chest pain, unspecified; R06.02 Shortness of breath; Z88.2 Allergy status to sulfonamides; Z79.899 Other long term (current) drug therapy; Z87.891 Personal history of nicotine dependence
CPT/HCPCS: 36415; 36600; 71045; 71275; 80053; 82803; 83605; 84484; 85025; 85610; 85730; 86140; 86738; 87040 ×2; 87804 ×2; 87899; 93005; 94640; 96361; 96374; 99285; A9270; J0696; J7030 ×2; J7040 ×2; Q9967; 71046; 71046-26; 80048; 80061; 83735; 87070; 87205; 87486; 87581; 87632; 87798; 93010; 94667; 94668; 94761; J0456; J1650; J7050; J7620-GY